=== PATIENT | male | born 1950 | race Asian ===

== ENCOUNTER 2018-01-19 09:23 | Emergency (ER) | payer OTHER, BC ==
[~2018-01-19] VITALS: Ht 170.2 cm; Wt 61.2 kg
--- NOTE | 2018-01-19 09:23 | NUR ---
PT AMBULATED TO BED 10 WITH ASSISTANCE. PT NOTED TACHYPENIA. SKIN PALE WARM AND DRY. PT DENIES CHEST PAIN ONLY COMPLAING OF HIS HEART BEATING RAPIDLY.PT PLACED ON MONITOR AND RR 45 . APPLIED NONREBREATHER WITH OUT O2 AND RECLINED IN BED. HEART RATE AT THIS IS TACHY AT 150. MD AT BEDSIDE EKG IN PROGRESS.
[2018-01-19 09:31] VITALS: BP 150/88
[2018-01-19] MEDS ORDERED: NACL 0.9% 1,000 ML IV ONE (09:35)
--- NOTE | 2018-01-19 09:40 | NUR ---
PT LYING DOWN CALMLY RR AND HR WNL, COMMUNICATING EFFECTIVLY NO HURRIED SPEECH, DENIES SOB AN DCHEST PAIN AT THIS TIME.
[2018-01-19 10:00] LABS: BASOPHILS % (AUTO) 0.5 % (0.0-2.0); EOSINOPHILS # (AUTO) 0.1 K/uL (0-0.4); HEMATOCRIT 47.5 % (36-52); LYMPHOCYTES % (AUTO) 37.6 % (20.5-51.1); MEAN CORPUSCULAR HEMOGLOBIN 30 pg (27-31); MEAN CORPUSCULAR HGB CONC 34 g/dL (33-37); MEAN CORPUSCULAR VOLUME 89.7 fL (80-94); MONOCYTES # (AUTO) 0.7 K/uL (0.8-1.0); MONOCYTES % (AUTO) 8.3 % (1.7-9.3); NEUTROPHILS # (AUTO) 4.1 K/uL (1.8-7.7); NEUTROPHILS % (AUTO) 52.6 % (42.2-75.2); PLATELET COUNT (AUTO) 191 K/uL (140-450); RED BLOOD CELL COUNT(AUTO) 5.29 MIL/uL (4.20-6.10); RED CELL DISTRIBUTION WIDTH 13.4 % (11.6-13.7); WHITE BLOOD COUNT (AUTO) 7.9 K/uL (4.8-10.8)
--- NOTE | 2018-01-19 10:07 | NUR ---
XRAY AT BEDSIDE
[2018-01-19 10:24] LABS: ANION GAP 20.7 (8-16); CARBON DIOXIDE 19.6 mmol/L (21-32); CREATININE 1.1 mg/dL (0.7-1.3); POTASSIUM 3.3 mmol/L (3.5-5.1)
[2018-01-19 10:28] LABS: PROTHROMBIN TIME 10.4 secs (10.8-13.4)
[2018-01-19 10:30] LABS: ALBUMIN 4.2 g/dL (3.4-5.0); TOTAL BILIRUBIN 1.1 mg/dL (0.0-1.0)
--- NOTE | 2018-01-19 10:39 | NUR ---
PT CONTINUES TO REST QUIETLY AT BEDSIDE, DENIES ANY PAIN OR SOB. HE SPOKE ON THE PHONE TO HIS . IV FLUIDS STILL INFUSING NO S/S OF IV INFILTRATE.
--- NOTE | 2018-01-19 10:40 | NUR ---
AT BEDSIDE AT THIS TIME.
--- NOTE | 2018-01-19 11:39 | NUR ---
Patient discharged with v/s stable. Written and verbal after care instructions given and explained. Patient verbalized understanding. Ambulatory with steady gait. All questions addressed prior to discharge. Advised to follow up with PMD.
[2018-01-19 11:40] VITALS: BP 112/65
== END 2018-01-19 11:39 | disposition home or self-care (01) ==
LOC: MED 09:23
DX: F45.8 Other somatoform disorders (principal); R03.0 Elevated blood-pressure reading, without diagnosis of hypertension
CPT/HCPCS: 36415; 71045; 80053; 84484; 85025; 85610; 85730; 93005; 96360; 96361; 99285; J7030